=== PATIENT | female | born 1995 | race Two or more races ===

== ENCOUNTER 2024-09-03 11:19 | Outpatient (AMB) | payer MEDICAID, SELFPAY ==
[2024-09-03 11:39] VITALS: BP 110/72; PULSE 109; RESP 18; TEMP 36.6; O2SAT 98; BMI 26.3
--- NOTE | 2024-09-03 11:39 | OBCLNT_ITS ---
Vital Signs 09/03/24 11:39 Height 1.57 m Height Method Measured Weight 65.317 kg Weight Measurement Method Standing Scale BMI 26.3 BP 110/72 Blood Pressure Source Automatic Cuff Blood Pressure Location Left Upper Arm Position Sitting Respiration 18 Pulse 109 H Pulse Source Monitor Temp 98 F Temp Source Oral Pulse Oximetry (%) 98 Oxygen Delivery Method Room Air Allergies/Home Meds Allergies & Medications Allergies No Known Allergies Allergy (Verified 09/03/24 11:40) Medication Reconciliation doxylamine 10 mg-pyridoxine (vit B6) 10 mg tablet,delayed release (Diclegis) 1 tab PO BID 30 days #60 tabs 09/03/24 [Rx] vitamin-ferrous fumarate 28 mg iron-folic acid 800 mcg tablet ( Vitamins with Minerals) 1 tab PO QDAY 30 days #30 tabs 09/03/24 [Rx] Intake Visit Data Collection New Patient or Established: Established Patient (seen at [facility] within 3 years) Reason for Visit:: INITIAL CARE Seen by Clinical Staff ONLY (RN/MA): No Supervisor Cytogenetic Laboratory Required: No Do You Feel Safe at Home: Yes Authorities Contacted: N/A PCP or OBGYN visit in last 3 months: No Hx Now: Yes Are you currently on any form of Control: No Last menstrual period: 06/20/24 Pain Present Currently: No Pain Scale Used: Mckeon-Ca/Numerical Pain scale:: 0 Smoking Status Smoking Status: Never smoker Questionnaires Covid-19 Vaccine Questionnaire Has patient been vacinated for Covid-19 Have you been vacinated for Covid-19: Yes PHQ-9 PHQ-2 Over the last 2 weeks, how often have you been bothered by any of the following problems? 1. Little interest or pleasure in doing things: not at all 2. Feeling down, depressed, or hopeless: not at all Total score: 0 PHQ-9 3. Trouble falling or staying asleep, or sleeping too much: Not at all 4. Feeling tired or having little energy: Not at all 5. Poor appetite or overeating: Not at all 6. Feeling bad about yourself - or that you are a failure or have let yourself or your family down: Not at all 7. Trouble concentrating on things, such as reading the newspaper or watching television: Not at all 8. Moving or speaking so slowly that other people could have noticed? - Or the opposite - being so fidgety or restless that you have been moving around a lot more than usual: not at all 9. Thoughts that you would be better off or of hurting yourself in some way: Not at all Total score: 0 Source: Developed by Drs. Jerry Portillo, Valentine Britton, Avila Cote and colleagues, with an educational marky from [employer]. Depression screen completed yes Social History Living Situation History Marital Status: Lives With: Family Housing: House Tobacco History Smoking Status: Never smoker Second Hand Smoke Exposure: No Alcohol History Alcohol Intake: Never Domestic Abuse History Do You Feel Safe at Home: Yes Past Medical History Past Medical History Have you ever been diagnosed with any of the following: Cardiology Problems Congestive Heart Failure: No Respiratory Problems Chronic Obstructive Pulmonary Disease (COPD): No Stomache/Intestinal Problems Hepatitis: No Genital/Urinary Problems Renal Disease: No Reproductive Problems Previous Pregnancies: No Endocrine Problems Diabetes Mellitus Type 1: No Diabetes Mellitus Type 2: No Other Problems Hospitalization: No Down Syndrome: No Developmental Delay: No Shingles: No Falls: No Blood Transfusions: No Blood Transfusion Reaction: No Anesthesia Reactions: No Organ Transplant: No Chemotherapy: No Radiation Therapy: No Hyperbaric Therapy: No MRSA: No VRSA: No Vancomycin-Resistant Enterococci: No Human Immunodeficiency Virus (HIV): No Chicken Pox: No Measles: No Mumps: No Rubella ([place]guill[place] Measles): No Pertussis: No Clostridium Difficile: No Cancer: No History of Present Illness HPI Narrative 28-year-old 2 para 1 for initial OB I. Patient comes today with her brother who is interpreting for her patient is Tajik. Last period June 10, 2024. Estimated due date April 22, 2025. Patient is 7 weeks today. Share dates. Menarche at 15. Reports that menses are usually every month. Denies social habits. Denies surgery. Denies chronic illness. First was full-term and uncomplicated. Vaginal . Complains of nausea. No SAB complaints. Patient and father the baby are happy. OB Initial Visit OB Flowsheet OB Flowsheet Initial Weight: Not Recorded Date -?-?-?-?-?-?-?-?-?-?-?-?- EGA Weight Edema CTX Effacement BP Fundal ht Pres Dilation Effacement Station Visit Note Alb Glu FHR Mov 09/03/24 -?-?-?-?-?-?-?-?-?-?-?-?- 7w 1d 65.317 kg absent absent 110/72 7 28-year-old 2 para 1 for OBI appointment. Patient reports last. Was July 15, 2024. This gives due date April 22, 2025. Sure dates. Reports nausea. Denies complaints of SAB. Patient denies social habits. Denies surgery. Denies chronic illness. Patient is happy about the . Diclegis 1 capsule p.o. twice daily and I gave her 30 and 2 refills. OB panel today. Schedule ultrasound for dating and viability. Return in 4 weeks OB check and NIPT.UA: NIT-,LEN: trace, PRO- 140 absent Menstrual History Menstrual reliability: definite Flow: normal Menstrual regularity: regular Monthly: Yes Age at menarche: 15 On control pills at conception: No Associated symptoms (LMP): Reports nausea and vomiting OB History : 2 Para: 1 # of Living Children: 1 Delivery History 1st : Child's name: KIM date: 11/13/23 sex: male Gestational age at delivery (weeks): 40 Delivery type: vaginal Delivery complications: none History of depression before or after : No Infection History & Risk Evaluation History of STDs: none HIV risk evaluation: low risk Hepatitis B risk evaluation: low risk Patient or partner has history of Genital Herpes: No Genetic Screening & History Symptoms since LMP: nausea Genetic Screening/Teratology Counseling - Includes patient, baby's father, or a nyone in either family with: 1. Patient's age 35 years or older as of estimated date of delivery: No 2. Thalassemia (Macedonian, Bengali, Mediterranean, or Background); MCV less than 80: No 3. Neural Tube Defect (Meningomyelocele, Spina Bifida, or Anencephaly): No 4. Congenital Heart Defect: No 5. Down Syndrome: No 6. Pacheco-Sachs (Ashkenazi Mu-Ism, Cajun, Armenian [place]): No 7. Javi Disease (Ashkenazi Mu-Ism): No 8. Familial Dysautonomia (Ashkenazi Mu-Ism): No 9. Sickle Cell Disease or Trait (): No 10. Hemophilia or other blood disorders: No 11. Muscular Dystrophy: No 12. Cystic Fibrosis: No 13. [place]'s Chorea: No 14. Mental Retardation/Autism: No 15. Other inherited genetic or chromosomal disorder: No 16. Maternal Metabolic Disorder (EG,TYPE 1 Diabetes, PKU): No 17. Patient or baby's father had a child with defects not listed above: No 18. Recurrent loss or a stillbirth: No 19. Medications (including supplements, vitamins, herbs or otc drugs)/illicit/recreational drugs/alcohol since last menstrual period: No 20. Any other: No Infection History 1. Live with someone with TB or exposed to TB: No 2. Rash or viral illness since last menstrual period: No 3. Hepatitis B,C: No Other (see comments) Source: [employer] Review of Systems Review of Systems Systems Reviewed: All systems reviewed, normal except as documented Gastrointestinal Gastrointestinal: Reports nausea and Reports vomiting Exam Narrative Physical exam: + fht on sono, 141, 7week size General Limitations: no limitations General Appearance: alert, in no apparent distress, comfortable, cooperative, healthy appearing, well developed and well groomed Head Head exam: atraumatic, normocephalic and normal inspection Chest Chest inspection: Present normal inspection and symmetric chest wall rise Resp Respiratory exam: Present normal lung sounds bilaterally Card Cardiovascular exam: Present regular rate, normal rhythm and normal heart sounds Abdominal Abdominal exam: Present soft and normal bowel sounds Psych Psychiatric exam: Present normal affect and normal mood Assessment & Plan Diagnosis / Problem List (1) Encounter for supervision of normal in multigravida in first trimester: Status: Acute Plan Start vitamins. #60 with 3 refills. Diclegis twice a day. I gave 60 with 2 refills. Discussed comfort measures for nausea and vomiting. SAB precautions. Order OB panel today. And schedule ultrasound for viability and dates. Additional Plan Follow Up: 4 Weeks (obc) Office Procedures OB Clinic LOC & Office Proc's Nursing/Assessment Patient Status: Established Patient OB Clinic Nursing Assessment: Medication Reconciliation, Update PMH in EMR and Vital Signs OB Clinic Coordination of Care: Complex Care and Chronic Disease 1-5, Consent,records obtained, informed consent, Education Simp Pt/Fam, Lab and Imaging orders, Results/Orders obtained and Staff clarify orders Special Needs: Heart tones Miscellaneous Interventions: Blood/Urine Collection Established Patient Charge Established Patient Point Assignment: 165 Established Patient Point Charge: EP Level 5 (160-above) Bedside Ultrasounds US Transabdominal >14 weeks at bedside: Yes
== END 2024-09-03 11:47 | disposition home or self-care (01) ==
LOC: HODSOBC 11:19
PROVIDERS: PCP Advanced Practice Midwife; Referring Provider Advanced Practice Midwife; Supervising Provider Advanced Practice Midwife; Visit Provider Advanced Practice Midwife
DX: Z34.81 Encounter for supervision of other normal pregnancy, first trimester (principal); Z3A.01 Less than 8 weeks gestation of pregnancy
CPT/HCPCS: 76805; 99215; G0463

== ENCOUNTER 2024-10-02 12:16 | Emergency (ER) | payer MEDICAID, SELFPAY ==
[2024-10-02 12:27] VITALS: BP 102/63; PULSE 85; RESP 16; TEMP 36.9; O2SAT 100; BMI 26.2
--- NOTE | 2024-10-02 12:39 | EDNOTE_ITS ---
ED OB Contraction Preg RMI/HPI General Chief complaint: Vaginal Bleeding Stated complaint: VAGINAL SPOTTING/PAIN APPROX 9WKS GESTATION Time Seen by Provider: 10/02/24 12:26 Arrival date/time: 10/02/24 12:16 Limitations: language barrier RME / HPI RME / HPI Narrative: 28-year-old female presents to the ED with complaint of vaginal bleeding with cramping that began at 6 AM this morning. She is currently 9 weeks . She denies any dysuria or frequency. She denies any recent illness with fever, chills, cough, upper respiratory complaints or GI complaints. Related Data Previous Rx's ?Medication ?Instructions ?Recorded doxylamine 10 mg-pyridoxine (vit 1 tab PO BID 30 days #60 tabs 09/03/24 B6) 10 mg tablet,delayed release (Diclegis) vitamin-ferrous fumarate 1 tab PO QDAY 30 day s #30 tabs 09/03/24 28 mg iron-folic acid 800 mcg tablet ( Vitamins with Minerals) Allergies Allergy/AdvReac Type Severity Reaction Status Date / Time No Known Allergies Allergy Verified 09/03/24 11:40 Review of Systems Review of Systems Systems Reviewed: All systems reviewed, normal except as documented Past Medical History Past Medical History NEUROLOGIC: Negative Neurological Disorders CARDIAC: Negative Cardiac Disorders or Congestive Heart Failure RESPIRATORY: Negative Chronic Obstructive Pulmonary Disease (COPD) GASTROINTESTINAL: Negative Gastrointestinal Disorders or Hepatitis GENITOURINARY: Negative Genitourinary Disorders or Renal Disease REPRODUCTIVE: Negative Previous Pregnancies MUSCULOSKELETAL: Negative Musculoskeletal Disorders ENDOCRINE: Negative Endocrine Disorders, Diabetes Mellitus Type 1 or Diabetes Mellitus Type 2 HEMATOLOGIC: Negative Blood Disorders OTHER HISTORY: Negative Hospitalization, Autoimmune Disease, Down Syndrome, Developmental Delay, Shingles, Falls, Blood Transfusions, Blood Transfusion Reaction, Anesthesia Reactions, Organ Transplant, Chemotherapy, Radiation Therapy, Hyperbaric Therapy, MRSA, VRSA, Vancomycin-Resistant Enterococci, Human Immunodeficiency Virus (HIV), Chicken Pox, Measles, Mumps, Rubella (Kyrgyz Measles), Pertussis, Clostridium Difficile or Cancer Family History FAMILY HISTORY: Negative Family Psychiatric Problems, Family Respiratory Disorders, Family Cardiac Disorders, Family Gastrointestinal Problems, Family Cancer, Family Surgery or Family Anesthesia Reaction Surgical History SURGICAL: Negative Section or Organ Transplant Social History SMOKING STATUS: Never smoker SECOND HAND EXPOSURE: No ED Exam Narrative Physical exam: Pleasant, alert and oriented, 28-year-old female, no acute distress. Here with male cash person. Lungs are clear, regular rate and rhythm without murmurs, abdomen is soft with mild generalized tenderness. No CVA tenderness noted. Positive bilateral lumbar tenderness. General Limitations: Present language barrier General appearance: Present alert and in no apparent distress Course Quality Measures none Orders Category Date Time Status US OB transvaginal Stat Exams 10/02/24 12:41 Completed ABO/RH Type Stat Lab 10/02/24 12:50 Completed Beta HCG,Quantitative Stat Lab 10/02/24 12:50 Completed CBC Stat Lab 10/02/24 12:50 Completed CMP [Comprehensive Metabolic Panel] Stat Lab 10/02/24 12:50 Completed Urinalysis Stat Lab 10/02/24 12:55 Completed Urine Culture Stat Lab 10/02/24 12:55 Received Vital Signs Vital signs: Vital Signs Temperature 98.5 F 10/02/24 12:27 Pulse Rate 85 10/02/24 12:27 Respiratory Rate 16 10/02/24 12:27 Blood Pressure 102/63 10/02/24 12:27 Pulse Oximetry (%) 100 10/02/24 12:27 Oxygen Delivery Method Room Air 10/02/24 12:27 Vaginal Bleeding Patient data External records reviewed:: None Clinical information provided by:: family Social determinants that could affect healthcare access:: none Patient has the following chronic illnesses:: None How is presenting disease/condition affected by chronic disease/condition?: no chronic disease Evaluation data The following diagnostics were reviewed and interpreted by me:: lab results and radiology exam(s) Lab and/or radiology exams considered but not ordered:: N/A Medications / Prescriptions Medications or Prescriptions considered but not ordered:: N/A Medication administrations:: None Consultations Consultation(s) initiated? (list below): Yes Consultation #1 (Physician, Specialty, Details): Dr Amaya, LOG DECK TENDER. She recommends the patient contact Dr. Sierra tomorrow morning at [phone] for an appointment to schedule a D&C. Time: 15:55 Diagnosis Vaginal Bleeding Differential Diagnosis: missed , threatened , dysfunctional uterine bleeding, incomplete , ectopic without intrauterine and vaginal bleeding Most likely diagnosis given after review of the tests above:: Missed vs incomplete Admission Indicated Admission indicated?: not indicated Admission Request Was there a request for admission?: No Disposition Plan Disposition Plan: Discharge Discharge Attestation Discharge Attestation: The patient and all family members were given an opportunity to ask questions and understood the discharge instructions. Discharge instructions specifically effects, indications for sooner follow up or return to the emergency department, and the expected course of current diagnosis. Patient condition: Stable Discharge Plan Plan Patient Disposition: HOME (Self Care) Discharge Disposition comment: Stable Prescriptions/Referrals Prescriptions/Med Rec: No Action doxylamine-pyridoxine (vit B6) [Diclegis] 10-10 mg tablet,delayed release (DR/EC) 1 tab PO BID 30 Days Qty: 60 3RF vit-iron fum-folic ac [ Vitamin with Minerals] 28 mg iron- 800 mcg tablet 1 tab PO QDAY 30 Days Qty: 30 3RF Referrals: Denisha Khalil CNM [Primary Care Provider] - In 1 week Murray Sierra MD [Physician] - In 1 week Problem List Clinical Impression: Missed , Incomplete Patient/Caregiver Discharge Instructions Education Materials: ED Miscarriage, Incomplete Additional Instructions: Per Dr. Amaya, LOG DECK TENDER on-call, contact Dr. Costa to schedule an appointment to schedule a D&C. Return to the ED for any new or worsening symptoms. Print Language: Slovenian Stand Alone Forms: Gabrielle Award Info., Patient Portal Info Letter PA/PRISM MEASURER Supervising Physician PA/YANG Supervising Physician: Dr. Navarrete
--- NOTE | 2024-10-02 12:41 | XR_ITS ---
Examination: OB Transvaginal ultrasound of the pelvis, complete Technique: Transvaginal sonographic images pelvis performed using grant scale imaging Exam date and time: October 02, 2024 1329 hours INDICATIONS: Vaginal bleeding today FINDINGS: Uterus 8.9 cm, pole 1.8 cm corresponds to 8 weeks 2 days gestational age No cardiac motion Right ovary 6.0 cm arterial flow 12 x 15 x 15 mm cyst Left ovary 3.1 cm arterial flow small follicles IMPRESSION: Findings most consistent with demise Abnormally enlarged right ovary, follow-up sonography is needed.
[2024-10-02 13:05] LABS: Collection Type, Urine Clean Catch
[2024-10-02 13:10] LABS: Basophils % (Auto) 1 % (0-2.5); Eosinophils # (Auto) 0.1 Thou/mm3 (0.0-0.5); Eosinophils % (Auto) 1 % (0-10); Hematocrit 34.3 % (36.0-46.0); Hemoglobin 11.5 g/dL (12.0-16.0); Immature Granulocytes % (Auto) 0 % (0-0); Immature Granulocytes Auto 0.02 Thou/mm3 (0.00-0.00); Lymphocytes # (Auto) 1.8 Thou/mm3 (1.0-4.8); Lymphocytes % (Auto) 24 % (10-50); Mean Corpuscular HGB Conc 33.5 g/dl (31.0-37.0); Mean Corpuscular Hemoglobin 25.8 pg (25.0-35.0); Mean Corpuscular Volume 77 fL (80-100); Monocytes # (Auto) 0.5 Thou/mm3 (0.0-0.8); Monocytes % (Auto) 7 % (0-12); Neutrophils % (Auto) 67 % (37-80); Nucleated Red Blood Cell % 0 /100 WBC (0); Platelet Count 310 Thou/mm3 (140-440); RDW Standard Deviation 41.5 fL (36.4-46.3); Red Blood Count 4.46 Miln/mm3 (4.00-5.20); White Blood Count 7.5 Thou/mm3 (3.6-11.0)
[2024-10-02 13:24] LABS: Bacteria,Urine Rare; Bilirubin,Urine Negative (Negative); Blood,Urine 3+ (Negative); Color,Urine Lt-Yellow (Lt Yel-Yel); Glucose, Urine Negative (Negative); Ketones,Urine Negative (Negative); Leukocyte Esterase,Urine Negative (Negative); Nitrite,Urine Negative (Negative); PH,Urine 7.5 (5.0-7.0); Protein,Urine Negative (Neg - Trace); RBC,Urine < 1 /hpf (0-3); Specific Gravity,Urine 1.007 (1.001-1.035); Squamous Epithelial Cell,Urine 10 /hpf (0-5); Urobilinogen,Urine Negative mg/dL (0.0-1.0); WBC,Urine 1 /hpf (0-5)
[2024-10-02 13:31] LABS: Clarity,Urine Hazy (Clear/Hazy)
[2024-10-02 14:52] LABS: Alanine Aminotransferase < 7 U/L (10-49); Albumin, Serum 4.6 gm/dL (3.5-5.0); Albumin/Globulin Ratio 1.8 (1.2-2.2); Alkaline Phosphatase 54 U/L (46-116); Anion Gap 10 (7-16); Aspartate Amino Transferase 13 U/L (0-34); BUN/Creatinine Ratio 8 Ratio (12-20); Beta HCG,Quantitative 9602 mIU/mL (<5.0); Bilirubin,Total 0.3 mg/dL (0.3-1.2); Blood Urea Nitrogen 5 mg/dL (9-23); Calcium 9.3 mg/dL (8.3-10.6); Calcium (Corrected) 9.3 mg/dL (8.5-10.1); Carbon Dioxide 27.5 mMol/L (20.0-31.0); Chloride 104 mMol/L (98-107); Creatinine (Component) 0.6 mg/dL (0.6-1.3); Estimated Creatinine Clearance 125.7 mL/min (>60); Globulin 2.6 gm/dL (2.3-3.5); Glucose 103 mg/dL (74-106); Osmolality,Calculated 278 (275-295); Potassium 3.8 mMol/L (3.4-5.1); Sodium 141 mMol/L (136-145); Total Protein 7.2 gm/dL (5.7-8.2); eGFR > 60 See Note
== END 2024-10-02 17:18 | disposition home or self-care (01) ==
PROVIDERS: Physician Assistant; Emergency Provider Emergency Medicine; PCP Advanced Practice Midwife
DX: O03.4 Incomplete spontaneous abortion without complication (principal)
CPT/HCPCS: 36415; 76817; 80053; 81001; 84702; 85025; 86900; 86901; 87086; 99284

== ENCOUNTER 2024-10-02 20:53 | Observation (INO) | payer MEDICAID, SELFPAY ==
[2024-10-02] VITALS (8 sets, daily range): BP systolic 81–106; BP diastolic 41–71; PULSE 45–122; RESP 14–22; TEMP 36.1–37; O2SAT 99–100; BMI 26.2
--- NOTE | 2024-10-02 21:14 | PD.EDADULT ---
ED General RME/HPI General Chief complaint: Abdominal Pain Stated complaint: ABDOMINAL PAIN Time Seen by Provider: 10/02/24 21:10 Arrival date/time: 10/02/24 20:53 Limitations: language barrier RME / HPI RME / HPI narrative: 28-year-old female presents to the ED with a complaint of worsening lower abdominal pain and cramping as well as increased bleeding with passage of clots and possible tissue. She was seen here earlier today and diagnosed with demise. Dr Amaya was contacted for further instructions. She advised the patient to contact Dr. Sierra's office tomorrow morning for an appointment for scheduling for D&C. After she went home, she began having worsening cramping with passage of clots and tissue. Family did not give her Tylenol or ibuprofen because she is . Advised Tylenol is safe in . Related Data Previous Rx's ?Medication ?Instructions ?Recorded doxylamine 10 mg-pyridoxine (vit 1 tab PO BID 30 days #60 tabs 09/03/24 B6) 10 mg tablet,delayed release (Diclegis) vitamin-ferrous fumarate 1 tab PO QDAY 30 days #30 tabs 09/03/24 28 mg iron-folic acid 800 mcg tablet ( Vitamins with Minerals) Allergies Allergy/AdvReac Type Severity Reaction Status Date / Time No Known Allergies Allergy Verified 09/03/24 11:40 Review of Systems Review of Systems Systems Reviewed: All systems reviewed, normal except as documented Past Medical History Past Medical History NEUROLOGIC: Negative Neurological Disorders CARDIAC: Negative Cardiac Disorders or Congestive Heart Failure RESPIRATORY: Negative Chronic Obstructive Pulmonary Disease (COPD) GASTROINTESTINAL: Negative Gastrointestinal Disorders or Hepatitis GENITOURINARY: Negative Genitourinary Disorders or Renal Disease REPRODUCTIVE: Negative Previous Pregnancies MUSCULOSKELETAL: Negative Musculoskeletal Disorders ENDOCRINE: Negative Endocrine Disorders, Diabetes Mellitus Type 1 or Diabetes Mellitus Type 2 HEMATOLOGIC: Negative Blood Disorders OTHER HISTORY: Negative Hospitalization, Autoimmune Disease, Down Syndrome, Developmental Delay, Shingles, Falls, Blood Transfusions, Blood Transfusion Reaction, Anesthesia Reactions, Organ Transplant, Chemotherapy, Radiation Therapy, Hyperbaric Therapy, MRSA, VRSA, Vancomycin-Resistant Enterococci, Human Immunodeficiency Virus (HIV), Chicken Pox, Measles, Mumps, Rubella (Uzbek Measles), Pertussis, Clostridium Difficile or Cancer Family History FAMILY HISTORY: Negative Family Psychiatric Problems, Family Respiratory Disorders, Family Cardiac Disorders, Family Gastrointestinal Problems, Family Cancer, Family Surgery or Family Anesthesia Reaction Surgical History SURGICAL: Negative Section or Organ Transplant Social History SMOKING STATUS: Never smoker SECOND HAND EXPOSURE: No ED Exam Narrative Physical exam: Alert and oriented 28-year-old female laying on the gurney in no acute distress. Skin is warm, normal color, and dry. Abdomen is soft with mild pelvic tenderness. Moves all extremities well. General Limitations: Present language barrier General appearance: Present alert and in no apparent distress Course Course Course Narrative: 28-year-old female presents to the ED with a complaint of worsening lower abdominal pain and cramping as well as increased bleeding with passage of clots and possible tissue. She was seen here earlier today and diagnosed with demise. Dr Amaya was contacted for further instructions. She advised the patient to contact Dr. Sierra's office tomorrow morning for an appointment for scheduling for D&C. After she went home, she began having worsening cramping with passage of clots and tissue. Family did not give her Tylenol or ibuprofen because she is . Advised Tylenol is safe in . Alert and oriented 28-year-old female laying on the gurney in no acute distress. Skin is warm, normal color, and dry. Abdomen is soft with mild pelvic tenderness. Moves all extremities well. Initial vital signs included a blood pressure of 98/69, pulse 86, respirations 17 nonlabored, temperature 98.1, O2 sat of 100% on room air. Patient was given Tylenol 650 mg as well as Higginson 5 mg p.o. for her pain. While resting comfortably on the gurney, her bleeding became more pronounced, she became pale, and had a syncopal episode. Staff immediately rushed to the bedside. Initially think the patient was in asystole but then her heart rate increased. In immediate EKG was performed which revealed atrial fibrillation with a slow ventricular response at a rate of [address] elevation. She also began having emesis. Urgent orders were placed for surveillance monitor, IV bilaterally, x-ray, updated labs including CBC, CMP, magnesium, coags, troponin, type and screen, urinalysis. Sodium chloride 2000 mL ordered stat as well as TXA and PRBCs x 1 unit, O-. Dr Amaya was contacted and requested labs and medications as was previously ordered. She will see the patient in the ED and likely take the patient to the OR tonight. Reevaluation of the patient, blood pressure is now back to normal at 94/66, pulse 95, respirations 16 and nonlabored, O2 sat 99% on room air. She has had several bouts of emesis. Staff is diligently working on completing the tasks as ordered. Orders Category Date Time Status Healthcare Customer Service STAT Care 10/02/24 22:11 Active EKG (ED ONLY) *Do not use* NOW Care 10/02/24 22:11 Active Insert IV STAT Care 10/02/24 22:11 Active NPO NOW Care 10/02/24 22:11 Active Transfuse,blood/blood products ONCE Care 10/02/24 22:11 Active EKG (ED Only) Stat Exams 10/02/24 22:11 Ordered XR chest 1V portable Stat Exams 10/02/24 22:11 Ordered Beta HCG,Quantitative Stat Lab 10/02/24 22:10 Ordered CBC Auto Diff Post-Transfusion Routine Lab 10/02/24 22:11 Ordered CBC Stat Lab 10/02/24 22:11 Ordered CMP [Comprehensive Metabolic Panel] Stat Lab 10/02/24 22:10 Ordered Magnesium Stat Lab 10/02/24 22:10 Ordered Partial Thromboplastin Time Stat Lab 10/02/24 22:11 Ordered Prothrombin Time with INR Stat Lab 10/02/24 22:11 Ordered Red Blood Cells Stat Lab 10/02/24 22:11 Ordered Troponin I Stat Lab 10/02/24 22:10 Ordered Type and Screen Stat Lab 10/02/24 22:11 Ordered UA, C/S IF [Urinalysis, C/S if Indicated] Stat Lab 10/02/24 22:10 Ordered Urinalysis Stat Lab 10/02/24 22:10 Ordered Acetaminophen Tab [Tylenol Tab] Med 10/02/24 21:18 Discontinued 650 mg PO X1 ONE Acetaminophen Tab [Tylenol Tab] Med 10/02/24 22:10 Discontinued 650 mg PO X1 ONE DiphenhydrAMINE [Benadryl] Med 10/02/24 22:10 Discontinued 25 mg PO X1 ONE Furosemide [Lasix Inj] Med 10/02/24 22:10 Discontinued 40 mg IVP X1 ONE HYDROcodone*/APAP 5/325 [Higginson 5/325] Med 10/02/24 21:18 Discontinued 1 tab PO X1 ONE Sodium Chloride 0.9% 1000 ml [Ns] 2,000 ml Med 10/02/24 22:14 Active IV 999 mls/hr Tranexamic Acid 1,000 mg Ivpb [Tranexamic Acid Ivpb] Med 10/02/24 22:13 Active 1,000 mg in 100 ml IV [id number] Vital Signs Vital signs: Vital Signs Temperature 98.1 F 10/02/24 20:56 Pulse Rate 86 10/02/24 20:56 Respiratory Rate 17 10/02/24 20:56 Blood Pressure 98/69 10/02/24 20:56 Pulse Oximetry (%) 100 10/02/24 20:56 Oxygen Delivery Method Room Air 10/02/24 20:56 Discharge Plan Prescriptions/Referrals Prescriptions/Med Rec: No Action doxylamine-pyridoxine (vit B6) [Diclegis] 10-10 mg tablet,delayed release (DR/EC) 1 tab PO BID 30 Days Qty: 60 3RF vit-iron fum-folic ac [ Vitamin with Minerals] 28 mg iron- 800 mcg tablet 1 tab PO QDAY 30 Days Qty: 30 3RF Referrals: Denisha Khalil CNM [Primary Care Provider] - In 1 week Patient/Caregiver Discharge Instructions Print Language: Nepali MDM Medication Administration(s) Medication Administration History Tranexamic Acid (Tranexamic Acid Ivpb) 1,000 mg in 100 mls @ 200 mls/hr IV [id number] PRN PRN Reason: BLEEDING Sodium Chloride (Ns) 2,000 mls @ 999 mls/hr IV .Q2H1M ONE Stop: 10/03/24 00:14 Last Admin: 10/02/24 22:17 Dose: 999 mls/hr Documented By: LYN Discontinued Medications Acetaminophen (Acetaminophen 325 Mg Tablet) 650 mg PO X1 ONE Stop: 10/02/24 21:19 Last Admin: 10/02/24 21:57 Dose: 650 mg Documented By: LYN Acetaminophen (Acetaminophen 325 Mg Tablet) 650 mg PO X1 ONE Stop: 10/02/24 22:11 Hydrocodone Bitart/Acetaminophen (Hydrocodone/Apap 5/325 Tablet) 1 tab PO X1 ONE Stop: 10/02/24 21:19 Last Admin: 10/02/24 21:57 Dose: 1 tab Documented By: LYN Diphenhydramine HCl (Diphenhydramine 25 Mg Capsule) 25 mg PO X1 ONE Stop: 10/02/24 22:11 Furosemide (Furosemide Inj 10 Mg/Ml Vial 2 Ml) 40 mg IVP X1 ONE Stop: 10/02/24 22:11
[2024-10-02] MEDS: HYDROcodone/APAP 5/325 TABLET 1 TAB PO (21:57)
[2024-10-02] MEDS: ACETAMINOPHEN 325 MG TABLET 650 MG PO (21:57)
--- NOTE | 2024-10-02 22:11 | XR_ITS ---
Examination: AP chest single view TECHNIQUE: Portable AP semiupright chest single view Date and time: 2024 1033 hours INDICATIONS: Weakness and shortness of breath today. FINDINGS: Mild pneumonia right base Normal size No pulmonary edema IMPRESSION: Mild pneumonia right base
[2024-10-02] MEDS: SODIUM CHLORIDE 0.9% 1000 ML 2,000 ML 999 ML IV (22:17)
[2024-10-02 22:41] LABS: Partial Thromboplastin Time 25.4 Seconds (22.0-36.0); Prothrombin Time 11.4 Seconds (9.0-12.2)
--- NOTE | 2024-10-02 22:53 | PC.NURSE ---
MORENO at bedside consenting patient. Interpretor Diab used.
[2024-10-02 22:57] LABS: Alanine Aminotransferase < 7 U/L (10-49); Albumin, Serum 3.8 gm/dL (3.5-5.0); Albumin/Globulin Ratio 1.8 (1.2-2.2); Alkaline Phosphatase 43 U/L (46-116); Anion Gap 10 (7-16); Aspartate Amino Transferase 11 U/L (0-34); BUN/Creatinine Ratio 12 Ratio (12-20); Bilirubin,Total 0.4 mg/dL (0.3-1.2); Blood Urea Nitrogen 7 mg/dL (9-23); Calcium 8.7 mg/dL (8.3-10.6); Calcium (Corrected) 8.9 mg/dL (8.5-10.1); Carbon Dioxide 22.4 mMol/L (20.0-31.0); Chloride 107 mMol/L (98-107); Creatinine (Component) 0.6 mg/dL (0.6-1.3); Estimated Creatinine Clearance 125.6 mL/min (>60); Globulin 2.1 gm/dL (2.3-3.5); Glucose 153 mg/dL (74-106); Magnesium 1.9 mg/dL (1.6-2.6); Osmolality,Calculated 278 (275-295); Potassium 4.3 mMol/L (3.4-5.1); Sodium 139 mMol/L (136-145); Total Protein 5.9 gm/dL (5.7-8.2); Troponin I < 0.002 ng/mL (0.0-0.045); eGFR > 60 See Note
[2024-10-02 23:09] LABS: Beta HCG,Quantitative 5102 mIU/mL (<5.0)
--- NOTE | 2024-10-02 23:12 | ESCONSULT_ITS ---
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 She was seen this am in the ER with a missed ab at 8-9 weeks but was only spotting. Her blood type is A +. She was told to follow up at clinic to schedule a D and C. She presented to the ED at about 2215 with heavy VB and a syncopal episode. She had two IV lines started and was consented for a suction D and C. Of note, the patient's father is at bedside to translate. An official manager of supply chain was used to consent the patient for sugery. She understands the risk of bleeding, a transfusion, infection, uterine perforation and further surgery should perforation occur. cc:: cc: Meds Home Medications and Allergies Allergies Allergy/AdvReac Type Severity Reaction Status Date / Time No Known Allergies Allergy Verified 09/03/24 11:40 Exam - [employer] FIN[employer] DEVELOPER Vital Signs Temp Pulse Resp BP Pulse Ox O2 Del Method O2 Flow Rate 98.6 F 86 16 106/71 99 Room Air 2 10/02/24 22:05 10/02/24 22:37 10/02/24 22:37 10/02/24 22:37 10/02/24 22:37 10/02/24 22:37 10/02/24 22:12 Narrative Exam The patient is pale and shaking. She has received 2 L of IVF. She is otherwise cooperative Constitutional Constitutional: mild distress and cooperative Comments: Anxious about surgery Routine Abdominal Exam Abdominal: Present soft Routine Exam Comments: Pelvic exam deferred until the patient is in the OR [employer] FIN[employer] DEVELOPER - Results Labs 10/02/24 22:14 Labs: BMP 10/02/24 22:14 Sodium 139 Potassium 4.3 D Chloride 107 Carbon Dioxide 22.4 BUN 7 L Creatinine 0.6 Glucose 153 H D Calcium 8.7 Cardiac Enzymes 10/02/24 Range/Units 22:14 Troponin I < 0.002 (0.0-0.045) ng/mL Liver Function 10/02/24 Range/Units 22:14 Total Bilirubin 0.4 (0.3-1.2) mg/dL AST 11 (0-34) U/L ALT < 7 L (10-49) U/L Alkaline Phosphatase 43 L D (46-116) U/L Albumin 3.8 D (3.5-5.0) gm/dL Assessment and Plan Assessment and plan (1) Incomplete : Status: Acute Assessment and plan: The patient is bleeding heavily and arrived by squad , had syncopal episode. For emergent Suction D and C (2) Hemorrhage affecting second : Status: Acute Assessment and plan: 2 U PRBC on hold
--- NOTE | 2024-10-02 23:58 | SUR.PHASEI ---
0700 Patient arrived to recovery resting comfortably in [facility], drowsy and responding to staff, Kyrgyz telephone extraction machine operator used to communicate with patient, breathing nonlabored, vital signs stable, denies pain, dressing intact to vaginal area; peripad, no bleeding noted, report received from Dr. Lenz and Dani HEATON
[2024-10-03] VITALS (21 sets, daily range): BP systolic 89–111; BP diastolic 41–58; PULSE 74–99; RESP 12–20; TEMP 36.2–36.9; O2SAT 95–100; BMI 27.6
[2024-10-03 00:02] LABS: Basophils % (Auto) 0 % (0-2.5); Eosinophils % (Auto) 0 % (0-10); Hematocrit 28.1 % (36.0-46.0); Hemoglobin 9.5 g/dL (12.0-16.0); Immature Granulocytes % (Auto) 0 % (0-0); Immature Granulocytes Auto 0.08 Thou/mm3 (0.00-0.00); Lymphocytes % (Auto) 16 % (10-50); Mean Corpuscular HGB Conc 33.8 g/dl (31.0-37.0); Mean Corpuscular Volume 77 fL (80-100); Monocytes # (Auto) 0.7 Thou/mm3 (0.0-0.8); Monocytes % (Auto) 4 % (0-12); Neutrophils # (Auto) 14.6 Thou/mm3 (1.8-7.7); Neutrophils % (Auto) 79 % (37-80); Nucleated Red Blood Cell % 0 /100 WBC (0); Platelet Count 385 Thou/mm3 (140-440); RDW Standard Deviation 41.6 fL (36.4-46.3); Red Blood Count 3.66 Miln/mm3 (4.00-5.20); White Blood Count 18.4 Thou/mm3 (3.6-11.0)
[2024-10-03 00:11] LABS: Basophils % (Auto) 0 % (0-2.5); Eosinophils % (Auto) 0 % (0-10); Immature Granulocytes % (Auto) 0 % (0-0); Monocytes # (Auto) 0.4 Thou/mm3 (0.0-0.8); Monocytes % (Auto) 3 % (0-12); Nucleated Red Blood Cell % 0 /100 WBC (0)
[2024-10-03 00:13] LABS: Hematocrit 22.5 % (36.0-46.0); Immature Granulocytes Auto 0.04 Thou/mm3 (0.00-0.00); Lymphocytes # (Auto) 1.5 Thou/mm3 (1.0-4.8); Lymphocytes % (Auto) 9 % (10-50); Mean Corpuscular HGB Conc 33.3 g/dl (31.0-37.0); Mean Corpuscular Hemoglobin 26.1 pg (25.0-35.0); Mean Corpuscular Volume 78 fL (80-100); Neutrophils # (Auto) 14.1 Thou/mm3 (1.8-7.7); Neutrophils % (Auto) 88 % (37-80); Platelet Count 308 Thou/mm3 (140-440); RDW Standard Deviation 42.6 fL (36.4-46.3); Red Blood Count 2.87 Miln/mm3 (4.00-5.20); White Blood Count 16.1 Thou/mm3 (3.6-11.0)
--- NOTE | 2024-10-03 00:24 | SUR.PHASEI ---
Dr. Amaya at bedside talking with patient via asl interpreter telephone, decision made to keep patient overnight observation
--- NOTE | 2024-10-03 00:25 | SUR.PHASEI ---
0025 Dr Amaya at bedside with patient, Verbal order read-back received from Dr. Amaya for overnight stay in observation, Verbal order read-back received for transfuse 2 units PRBC's; one to be started in PACU prior to patient going to [facility]
--- NOTE | 2024-10-03 00:30 | SUR.PHASEI ---
1230 patient father at bedside with patient
[2024-10-03 00:37] LABS: Hemoglobin 7.5 g/dL (12.0-16.0)
--- NOTE | 2024-10-03 00:58 | PD.GYNPROC ---
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 She had originally presented to the ER the morning of 10/02/2024 reporting some spotting. She was diagnosed with an intrauterine about 8 and half weeks with no cardiac activity. As the patient was not acutely bleeding she was sent home to call the clinic to follow-up the next day to schedule suction D&C. The patient presented to the ER approximately 12 hours later with heavy vaginal bleeding and had passed clots at home. She had a syncopal episode at home. On admission she was pale and diaphoretic with a low blood pressure. The patient was consented for an emergent suction dilation and suction curettage Pre-Op diagnosis: 1. Intrauterine at 8 to 9 weeks 2. Incomplete miscarriage 3. Acute hemorrhage due to heavy vaginal bleeding 4. A positive blood type Post-Op diagnosis: Same Anesthesia type: General Procedure description: After obtaining informed consent, the patient was brought back to the operating room and general anesthesia administered. She was then prepped and draped in the dorsal lithotomy position using candy cane stirrups in a normal sterile fashion. The patient was given 2 g of Ancef by anesthesia. Her bladder was emptied with a red Caleb catheter. The anterior lip of the cervix grasped with a single-tooth tooth tenaculum at the 12 o'clock position and the cervix noted to be completely dilated to 3 cm. A ring forcep was used to tease all clots out of the vaginal area. A brisk endometrial curettage using a wide loop endometrial curette was then performed and the scrapings was sent down to pathology. A curved 8 suction curette was then introduced to the fundus of the uterus and the suction activated. This was gently rotated to clear the uterus of any remaining clots and debris. The endometrium underwent an a gentle endometrial curettage and any scrapings sent down to pathology. The suction curette was introduced one more time and the uterus cleared of any remaining clots and debris. At the end of the procedure the tenaculum was removed and the patient's cervix was to be noted to be hemostatic. The patient was given Methergine IM during the procedure and TXA by anesthesia. The patient tolerated the procedure well, sponge, lap needle and instrument counts were correct x 2. The patient went to the recovery area awake and in stable condition. Fluids: crystalloid Fluid amount (mL): 500 Urine output (mL): 200 Specimen: other (Products of conception) Implants: None Estimated blood loss (ml): 350 Findings: Anteverted uterus approximately 9 weeks size. Os dilated to 3 cm. About 300 to 350 cc of clots in the vagina. Moderate amounts of products of conception. Surgical staff Operation Date: 10/02/24 23:35 Case Staff Anesthesiologist: Nicholas Lenz Diagnosis Discharge Diagnosis (1) Hemorrhage affecting second : Status: Acute Problem details: Patient's hemoglobin on presentation was 11.5, she dropped to 7.5. She will receive 2 units of packed red blood cells and stay overnight. (2) Incomplete : Status: Acute Problem List Completed Was Problem List Reviewed/Reconciled?: Yes
--- NOTE | 2024-10-03 01:14 | SUR.PHASEI ---
0114 Transfusion of PRBC's started per MD order, will monitor patient
--- NOTE | 2024-10-03 01:29 | SUR.PHASEI ---
0129 Patient tolerating blood transfusion, no reaction noted, will continue to monitor patient
--- NOTE | 2024-10-03 01:47 | SUR.PHASEI ---
0145 Report given to Shelly HEATON, patient meets discharge criteria from recovery, awake and talking with her father, breathing nonlabored, vital signs stable, denies pain, dressing intact; no bleeding noted, denies nausea-tolerating ice chips, PRBC's transfusing-patient tolerating well. 0147 Patient transported via gurney to room 365 without incident, accompanied by her father.
--- NOTE | 2024-10-03 02:00 | PC.NURSE ---
MD Amaya made aware that pt BP is 84/48,pt is ongoing 1st blood transfusion, MD ordered to start pts on IV fluids and continue blood transfusion, pt to receive total of 2 PRBC and will repeat CBC after 4 hrs of blood transfusion.
[2024-10-03] MEDS: SODIUM CHLORIDE 0.9% 500 ML 500 ML 250 ML IV (02:21)
[2024-10-03] MEDS: SODIUM CHLORIDE 0.9% 1000 ML 1,000 ML 125 ML IV (04:24)
--- NOTE | 2024-10-03 08:24 | ESPR_ITS ---
Documentation for date of: 10/03/24 SENIOR DIGITAL DESIGNER Subjective Subjective Interval history: Patient is a 28-year-old who is now status post D&C after being brought in by EMS with passive vaginal hemorrhage. CBC postoperatively was 7.5. Patient is clinically appearing stable with minimal amount of pallor on inspection Exam Vital Signs Temp Pulse Resp BP Pulse Ox O2 Del Method O2 Flow Rate 97.5 F 83 18 92/50 L 96 Room Air 2 10/03/24 08:00 10/03/24 08:00 10/03/24 08:00 10/03/24 08:00 10/03/24 08:00 10/03/24 08:00 10/02/24 22:12 Constitutional Constitutional: no acute distress Routine HEENT Exam Head: Present normocephalic and atraumatic Eye: Present EOMI and PERRL ENT: Present mucous membranes moist Routine Neck Exam Neck: Present supple and trachea midline Routine Respiratory Exam Respiratory: Present chest non-tender, lungs clear, normal breath sounds and no resp distress Routine Cardiovascular Exam Cardiovascular: Present RRR Routine Abdominal Exam Abdominal: Present soft and normoactive bowel sounds Routine Extremities Exam Extremities: Present full ROM Routine Skin Exam Skin: Present intact and dry Routine Neurological Exam Neurological: Present alert, oriented X3 and CN II-XII intact Routine Psychiatric Exam Psychiatric: Present normal affect and normal thought process Urinary Catheter Management Cath placed during this visit: no SENIOR DIGITAL DESIGNER - PN: Obj Data Labs 10/03/24 00:03 10/02/24 22:14 Labs: Laboratory Results - last 24 hr 10/02/24 10/03/24 22:14 00:03 WBC 18.4 H D 16.1 H RBC 3.66 L 2.87 L Hgb 9.5 L D 7.5 L D Hct 28.1 L 22.5 L MCV 77 L 78 L MCH 26.0 26.1 MCHC 33.8 33.3 RDW Std Deviation 41.6 42.6 Plt Count 385 D 308 D Neut % (Auto) 79 88 H Lymph % (Auto) 16 9 L [place] % (Auto) 4 3 Eos % (Auto) 0 0 Baso % (Auto) 0 0 Neut # (Auto) 14.6 H 14.1 H Lymph # (Auto) 3.0 1.5 [place] # (Auto) 0.7 0.4 Eos # (Auto) 0.0 0.0 Baso # (Auto) 0.0 0.0 Immature Gran # (Auto) 0.08 H 0.04 H Absolute Nucleated RBC 0.00 0.00 Immature Gran % 0 0 Nucleated RBC % 0 0 PT 11.4 INR 1.0 APTT 25.4 Sodium 139 Potassium 4.3 D Chloride 107 Carbon Dioxide 22.4 Anion Gap 10 BUN 7 L Creatinine 0.6 Estim Creat Clear Calc 125.6 eGFR > 60 BUN/Creatinine Ratio 12 Glucose 153 H D Calculated Osmolality 278 Calcium 8.7 Corrected Calcium 8.9 Magnesium 1.9 Total Bilirubin 0.4 AST 11 ALT < 7 L Alkaline Phosphatase 43 L D Troponin I < 0.002 Total Protein 5.9 Albumin 3.8 D Globulin 2.1 L Albumin/Globulin Ratio 1.8 Beta HCG, Quant 5102 Blood Type A Positive Antibody Screen NEGATIVE Crossmatch See Detail Blood Bank Wristband ID Yes SENIOR DIGITAL DESIGNER - A/P Assessment and plan (1) Hemorrhage affecting second : Status: Acute Assessment and plan: Receiving 2 units of packed RBCs, anticipate discharge home later today Meeting all of the postoperative milestones (2) Incomplete : Status: Acute Postoperative Procedures: Procedures Operation Date: 10/02/24 23:35 Actual Procedure Side Surgeon p DILATION AND CURRETAGE Not Applicable Shazia Amaya ([facility])MD Time Spent With Patient Time: Total time spent is greater than 50% in coordination of care (as documented) at patient's floor/unit and/or counseling patient: Time with patient: less than 15 minutes
--- NOTE | 2024-10-03 08:25 | ESDS_ITS ---
DS: Providers Provider Date of admission: 10/03/24 01:53 Primary care physician: Jd Fernandez MD Admitting Provider: Shazia Amaya MD ([facility]) Attending Provider on Admission: Murray Sierra MD Attending Provider on DC: Murray Sierra MD Discharging Provider: Murray Sierra MD DS: Diagnosis Discharge Diagnosis (1) Incomplete : Status: Acute Problem List Completed Was Problem List Reviewed/Reconciled?: Yes Summary/Hosp Course Brief History: Patient is a 28-year-old who is now status post D&C after being brought in by EMS with passive vaginal hemorrhage. CBC postoperatively was 7.5. Patient is clinically appearing stable with minimal amount of pallor on inspection Peripartum Data Procedures: Procedures Operation Date: 10/02/24 23:35 Actual Procedure Side Surgeon p DILATION AND CURRETAGE Not Applicable Shazia Amaya ([facility])MD Time Spent with Patient Time attestation: Total time spent providing and/or coordinating discharge services: Exam Vital Signs Temp Pulse Resp BP Pulse Ox O2 Del Method O2 Flow Rate 97.5 F 83 18 92/50 L 96 Room Air 2 10/03/24 08:00 10/03/24 08:00 10/03/24 08:00 10/03/24 08:00 10/03/24 08:00 10/03/24 08:00 10/02/24 22:12 Discharge Plan Plan Patient Disposition: HOME (Self Care) Patient condition on transfer: Stable Prescriptions/Referrals Prescriptions/Med Rec: New ibuprofen 600 mg tablet 600 mg PO Q6H MDD 4 PRN (Reason: fever or pain) 10 Days Qty: 40 0RF amoxicillin-pot clavulanate 875-125 mg tablet 1 tab PO BID 7 Days Qty: 14 0RF Continued vit-iron fum-folic ac [ Vitamin with Minerals] 28 mg iron- 800 mcg tablet 1 tab PO QDAY 30 Days Qty: 30 3RF Referrals: Jose Luis ([facility])Shazia MD [Physician] - Patient/Caregiver Discharge Instructions Meds to Beds: Yes Education Materials: Discharge Instructions for ... Print Language: Mongolian Stand Alone Forms: Gabrielle Award Info., Patient Portal Info Letter, Work/Release Restrictions Planned Discharge Date 10/03/24
[2024-10-03 09:53] LABS: Basophils % (Auto) 0 % (0-2.5); Eosinophils % (Auto) 0 % (0-10); Hematocrit 26.4 % (36.0-46.0); Hemoglobin 9.4 g/dL (12.0-16.0); Immature Granulocytes % (Auto) 0 % (0-0); Immature Granulocytes Auto 0.03 Thou/mm3 (0.00-0.00); Lymphocytes % (Auto) 14 % (10-50); Mean Corpuscular HGB Conc 35.6 g/dl (31.0-37.0); Mean Corpuscular Volume 79 fL (80-100); Monocytes # (Auto) 0.1 Thou/mm3 (0.0-0.8); Monocytes % (Auto) 2 % (0-12); Neutrophils # (Auto) 6.2 Thou/mm3 (1.8-7.7); Neutrophils % (Auto) 84 % (37-80); Nucleated Red Blood Cell % 0 /100 WBC (0); Platelet Count 231 Thou/mm3 (140-440); RDW Standard Deviation 40.8 fL (36.4-46.3); Red Blood Count 3.36 Miln/mm3 (4.00-5.20); White Blood Count 7.4 Thou/mm3 (3.6-11.0)
--- NOTE | 2024-10-03 13:51 | PC.SS ---
SS met with patient and dad regarding his d/c plan. Pt is alert/oriented. Pt was admitted for Incomplete AB. Pt confirmed demographic and contact information is correct on facesheet. Pt resides with his dad. Pt ambulates independently without assistance or DME. Pt is ok with all ADLs. Patient?s pharmacy of choice is [facility] [address]. Patient's dad, Claritza Martinez medical decision maker if he is unable. Patient?s choice is to return home upon d/c. Pt states not diabetic and is not on dialysis. D/C plan: Return home Next of Kin: Claritza Martinez, dad, phone# [phone] PCP: Denisha Khalil Address: Correct on facesheet
== END 2024-10-03 12:51 | disposition home or self-care (01) ==
LOC: SERX 22:59 → S2EX 23:59 → S3NX 10-03 06:44
PROVIDERS: Physician Assistant; Admitting Provider Obstetrics & Gynecology; Emergency Provider Emergency Medicine; PCP Family Medicine; Referring Provider Obstetrics & Gynecology; Visit Provider Obstetrics & Gynecology
PROC: 0U5B8ZZ Destruction of Endometrium, Via Natural or Artificial Opening Endoscopic (ICD-10-PCS; CPT 58563; principal; 2024-10-02 23:30)
DX: O03.4 Incomplete spontaneous abortion without complication (principal); Z3A.09 9 weeks gestation of pregnancy; Z82.49 Family history of ischemic heart disease and other diseases of the circulatory system; Z01.810 Encounter for preprocedural cardiovascular examination
CPT/HCPCS: 59812; 36415; 36430; 71045; 80053; 81001; 83735; 84484; 84702; 85025; 85610; 85730; 86850; 86900; 86901; 86923; 96360; 96361; 99285; A4217; A4649; G0378; J0690; J1100; J2210; J2371; J2704; J2765; J3010; J3490; J7030; J7040; P9016; A9270